=== PATIENT | female | born 1955 | race Caucasian/White ===

== ENCOUNTER 2024-04-10 11:15 | Day surgery (SDC) | payer OTHER ==
[2024-04-04 13:21] VITALS: BMI 28.5
[2024-04-10 13:24] VITALS: TEMP 98
[2024-04-10 13:25] VITALS: RESP 18
[2024-04-10 13:27] VITALS: BP 132/65; PULSE 81
== END 2024-04-10 13:53 | disposition home or self-care (01) ==
LOC: FASU-ENDO 11:15
PROVIDERS: ATTEND Internal Medicine Gastroenterology
PROC: 0DB68ZX Excision of Stomach, Via Natural or Artificial Opening Endoscopic, Diagnostic (ICD-10-PCS; 2024-04-10)
PROC: 0DB28ZX Excision of Middle Esophagus, Via Natural or Artificial Opening Endoscopic, Diagnostic (ICD-10-PCS; 2024-04-10)
PROC: 0DB48ZX Excision of Esophagogastric Junction, Via Natural or Artificial Opening Endoscopic, Diagnostic (ICD-10-PCS; 2024-04-10)
PROC: 0DB98ZX Excision of Duodenum, Via Natural or Artificial Opening Endoscopic, Diagnostic (ICD-10-PCS; principal; 2024-04-10 12:52)
DX: K29.50 Unspecified chronic gastritis without bleeding (principal); K21.00 Gastro-esophageal reflux disease with esophagitis, without bleeding; B96.81 Helicobacter pylori [H. pylori] as the cause of diseases classified elsewhere; R10.13 Epigastric pain; R13.10 Dysphagia, unspecified
CPT/HCPCS: 88305-TC; 88342-TC